=== PATIENT | female | born 1990 | race Caucasian/White ===

== ENCOUNTER 2022-07-26 12:18 | Emergency (ER) | payer OTHER ==
[2022-07-26 12:27] VITALS: BP 133/65; PULSE 88; RESP 18; TEMP 97.6; BMI 36.8
== END 2022-07-26 13:51 | disposition home or self-care (01) ==
LOC: JERFT 12:18
DX: N94.10 Unspecified dyspareunia (principal)
CPT/HCPCS: 99282-25